=== PATIENT | male | born 1960 | race Caucasian/White ===

== ENCOUNTER 2016-06-09 23:43 | Emergency (ER) | payer BC ==
[2016-06-09 23:51] VITALS: BP 136/76
[2016-06-09] MEDS ORDERED: fentaNYL 100 MCG/2 ML SDV IVPUSH ONE (23:55)
[2016-06-09] MEDS ORDERED: Metoclopramide 10 MG/2 ML SDV IVPUSH ONE (23:55)
[2016-06-09] MEDS ORDERED: Sodium Chloride 0.9% 10 ML Syringe FLUSH PRN (23:55)
--- NOTE | 2016-06-10 00:43 | EDM.PDOC ---
ED HPI Trauma - General Chief Complaint: Lower Extremity Injury/Pain Stated Complaint: [facility] Time Seen by Provider: 06/09/16 23:48 Source: Reports: Patient, EMS History Limitations: Reports: No limitations - History of Present Illness INITIAL COMMENTS - FREE TEXT/NARRATIVE: The patient presents by [facility] for severe pain to his left hip. The patient has a history of severe arthritis and he has had bilateral knee replacements and right hip replacement. He has been having pin in his left knee for a few weeks and saw Dr Munguia at [facility] in [place] and he feels the plastic is bad in the left knee and needs to be replaced. He will also need to get a left hip replacement. He has been using crutches to get around. This evening he was trying to get up out of a chair and he felt severe pain to his left hip. He could not move at all after that without having pain. EMS was called and they started an IV and gave him a total of 4mg of dilaudid, versed 2mg and zofran 4mg IV. He is still having pain when he arrived. Occurred When: just prior to arrival Occurred Where: home Method of Injury: other (He was trying to get up out of a chair) Severity: severe Pain/Injury Location: Reports: lower extremity, left (Hip and left knee) Consciousness: Reports: no loss of consciousness Associated Symptoms: Reports: no other symptoms Allergies/ADRs: Allergies cephalexin Allergy (Verified 07/20/14 16:30) Nausea and Vomiting colesevelam HCl [From WelChol] Allergy (Verified 07/20/14 16:30) Muscle Aches ezetimibe [From Zetia] Allergy (Verified 07/20/14 16:30) Muscle Aches pravastatin Allergy (Verified 07/20/14 16:30) Muscle Aches rosuvastatin calcium [From Crestor] Allergy (Verified 07/20/14 16:30) Nausea and Vomiting Home Medications: Ambulatory Orders Citalopram [Citalopram HBr] 40 mg PO DAILY 08/31/13 [Confirmed 06/10/16] Lansoprazole [Prevacid] 30 mg PO DAILY 08/31/13 [Confirmed 06/10/16] Lisinopril 5 mg PO DAILY 08/31/13 [Confirmed 06/10/16] Warfarin [Coumadin] 1 tab PO ASDIRECTED 08/31/13 [Confirmed 06/10/16] glipiZIDE [Glucotrol XL] 10 mg PO BID 08/31/13 [Confirmed 06/10/16] metFORMIN [Glucophage] 1,000 mg PO BIDM 08/31/13 [Confirmed 06/10/16] Canagliflozin [Invokana] 100 mg PO DAILY 06/10/16 [Confirmed 06/10/16] Hydrocodone/Acetaminophen [Hydrocodon-Acetaminophen 5-325] 1 tab PO Q4H PRN [Confirmed 06/10/16] Tamsulosin HCl [Tamsulosin HCl] 0.4 mg PO DAILY 06/10/16 [Confirmed 06/10/16] Past Medical History Endocrine/Metabolic History: Reports: Diabetes, type II Hematologic History: Reports: Other (see below) Other Hematologic History: factor V - Past Surgical History GI Surgical History: Reports: Colonoscopy Musculoskeletal Surgical History: Reports: Hip replacement, Knee replacement Social & Family History - Family History Family Medical History: Noncontributory - Tobacco Use Smoking Status *Q: Never Smoker Second Hand Smoke Exposure: No - Alcohol Use Days Per Week of Alcohol Use: 0 Number of Drinks Per Day: 0 Total Drinks Per Week: 0 - Recreational Drug Use Recreational Drug Use: No Drug Use in Last 12 Months: No Review of Systems - Review of Systems Review Of Systems: See Below Constitutional: Reports: no symptoms Eyes: Reports: no symptoms Ears: Reports: no symptoms Nose: Reports: no symptoms Mouth/Throat: Reports: no symptoms Respiratory: Reports: no symptoms Cardiovascular: Reports: no symptoms GI/Abdominal: Reports: No symptoms Genitourinary: Reports: no symptoms Musculoskeletal: Reports: other (Left hip and knee pain) Trauma Exam - Physical Exam Exam: See Below Exam Limited By: No limitations General Appearance: Reports: alert, mild distress Head: Reports: atraumatic, normocephalic Ears: Reports: normal external exam Nose: Reports: normal inspection Respiratory Exam: Reports: no respiratory distress, lungs clear, normal breath sounds Cardiovascular: Reports: regular rate, rhythm, no edema, no murmur GI/Abdominal: Reports: soft, non tender, no organomegaly Back: Reports: non-tender Extremities: Reports: other (Severe pain upon palpation to the left hip and moderate pain upon palpation to the left hip. Good sensation and pulses distally.) Neurologic: Reports: no motor/sensory deficits, alert, oriented x 3 Course - Vital Signs Last Recorded V/S: Last Vital Signs Temp 99.2 F 06/09/16 23:47 Pulse 111 H 06/09/16 23:47 Resp 18 06/09/16 23:47 BP 136/76 06/09/16 23:47 Pulse Ox 94 L 06/09/16 23:47 - Orders/Labs/Meds Orders: Active Orders 24 hr Category Date Time Status Peripheral IV Care [RC] . DIRECTED Care 06/09/16 23:55 Active Hip Min 2V or 3V w Pelvis Lt [CR] Stat Exams 06/09/16 23:56 Ordered Sodium Chloride 0.9% [Saline Flush] Med 06/09/16 23:55 Active 10 ml FLUSH ASDIRECTED PRN Peripheral IV Insertion Adult [OM.PC] Routine Oth 06/09/16 23:55 Ordered Medication Orders Sodium Chloride (Saline Flush) 10 ml FLUSH ASDIRECTED PRN PRN Reason: Keep Vein Open Last Admin: 06/10/16 00:04 Dose: 10 ml Meds: Medications Generic Name Dose Route Start Last Admin Trade Name Freq PRN Reason Stop Dose Admin Sodium Chloride 10 ml 06/09/16 23:55 06/10/16 00:04 Saline Flush FLUSH 10 ml ASDIRECTED PRN Administration Keep Vein Open Discontinued Medications Generic Name Dose Route Start Last Admin Trade Name Freq PRN Reason Stop Dose Admin Fentanyl 100 mcg 06/09/16 23:55 06/10/16 00:04 Sublimaze IVPUSH 06/09/16 23:56 100 mcg ONETIME ONE Administration Methylprednisolone Sodium Succinate 125 mg 06/10/16 01:00 06/10/16 01:05 Solu-Medrol IVPUSH 06/10/16 01:01 125 mg ONETIME ONE Administration Metoclopramide HCl 10 mg 06/09/16 23:55 06/10/16 00:04 Reglan IVPUSH 06/09/16 23:56 10 mg ONETIME ONE Administration - Re-Assessments/Exams Free Text/Narrative Re-Assessment/Exam: 06/10/16 00:45 I need to get an x-ray so I ordered fentanyl 100mcg IV and he was nauseated so I ordered some reglan 10mg IV. 06/10/16 02:11 His x-ray shows arthritis but no fracture. He is feeling better. I gave him some solu-medrol 125mg IV and he can now get up. I will give him some percocet for pain at home. Departure - Departure Time of Disposition: 02:15 Disposition: Home, Self-Care 01 Condition: good Clinical Impression: Left hip pain Osteoarthritis of left hip Qualifiers: Osteoarthritis type: primary Qualified Code(s): M16.12 - Unilateral primary osteoarthritis, left hip Referrals: Judith Mack PA-C [Primary Care Provider] - 1 Week Forms: ED Department Discharge Additional Instructions: Take the percocet for pain. Call Dr Munguia on Saturday and see if he can get you in sooner. - My Orders Last 24 Hours: My Active Orders 06/09/16 23:55 Peripheral IV Care [RC] . DIRECTED Sodium Chloride 0.9% [Saline Flush] 10 ml FLUSH ASDIRECTED PRN Peripheral IV Insertion Adult [OM.PC] Routine 06/09/16 23:56 Hip Min 2V or 3V w Pelvis Lt [CR] Stat - Assessment/Plan Last 24 Hours: My Active Orders 06/09/16 23:55 Peripheral IV Care [RC] . DIRECTED Sodium Chloride 0.9% [Saline Flush] 10 ml FLUSH ASDIRECTED PRN Peripheral IV Insertion Adult [OM.PC] Routine 06/09/16 23:56 Hip Min 2V or 3V w Pelvis Lt [CR] Stat
[2016-06-10] MEDS ORDERED: methylPREDNISolone Sodium Succinate 125 MG/2 ML SDV IVPUSH ONE (01:00)
--- NOTE | 2016-06-11 09:48 | CR ---
Pelvis and left hip: AP view of the pelvis was obtained as well as AP and frog-leg lateral views of the left hip. Comparison: Previous AP pelvis study of 10/25/13. Right hip prosthesis is seen. This is an interval change from prior exam. Mild joint space narrowing noted within the left hip with osteophytes. No acute fracture or other abnormality is appreciated. Impression: 1. Degenerative change within the left hip. Right hip prosthesis. 2. AP pelvis and two-view left hip exam is otherwise unremarkable. Diagnostic code #2
== END 2016-06-10 02:30 | disposition home or self-care (01) ==
LOC: JD.ED 23:43
DX: M16.12 Unilateral primary osteoarthritis, left hip (principal); E11.9 Type 2 diabetes mellitus without complications; Z79.899 Other long term (current) drug therapy; Z96.641 Presence of right artificial hip joint; Z96.653 Presence of artificial knee joint, bilateral; Z88.1 Allergy status to other antibiotic agents; Z88.8 Allergy status to other drugs, medicaments and biological substances; Z79.84 Long term (current) use of oral hypoglycemic drugs
CPT/HCPCS: 73502; 96374; 96375; 99284; J2765; J2930; J3010; J7050

== ENCOUNTER 2021-05-09 13:49 | Emergency (ER) | payer BC ==
[2021-05-09] MEDS ORDERED: Sodium Chloride 0.9% 10 ML Syringe FLUSH PRN (15:32)
[2021-05-09] MEDS ORDERED: Sodium Chloride 0.9% 1,000 ML IV STA (15:48)
[2021-05-09] MEDS ORDERED: Ondansetron 4 MG/2 ML SDV IVPUSH ONE (15:49)
[2021-05-09 17:19] LABS: CORONAVIRUS COVID-19 NAA NEGATIVE (NEGATIVE)
[2021-05-09] MEDS ORDERED: Iopamidol 612 MG/ML 100 ML Bottle IVPUSH ONE (18:53)
[2021-05-09] MEDS ORDERED: Dicyclomine 10 MG Cap PO ONE (21:09)
[2021-05-09] MEDS ORDERED: Sucralfate 1 GM Tab PO ONE (21:09)
[2021-05-09 21:26] VITALS: BP 116/95; PULSE 83
== END 2021-05-09 21:24 | disposition home or self-care (01) ==
LOC: JD.ED 13:49
DX: K52.9 Noninfective gastroenteritis and colitis, unspecified (principal); K21.9 Gastro-esophageal reflux disease without esophagitis; E11.9 Type 2 diabetes mellitus without complications; Z88.1 Allergy status to other antibiotic agents; Z88.8 Allergy status to other drugs, medicaments and biological substances; Z79.84 Long term (current) use of oral hypoglycemic drugs; Z79.899 Other long term (current) drug therapy; Z20.822 Contact with and (suspected) exposure to COVID-19
CPT/HCPCS: 0240U; 36415; 71045; 74177; 80053; 81001; 82977; 83690; 85025; 86140; 93005; 96374; 99284; A9270; J2405; J7030; Q9967